=== PATIENT | male | born 1980 | race Caucasian/White ===

== ENCOUNTER 2024-10-23 11:15 | Inpatient (IN) | payer OTHER ==
[2024-10-23] MEDS ORDERED: PROMETHAZINE INJ 25 MG/ML AMP ONE (11:50)
[2024-10-23] MEDS ORDERED: ONDANSETRON 4 MG/2 ML VIAL ONE (11:50)
[2024-10-23] MEDS ORDERED: NA CHLORIDE 0.9% 2,000 ML ONE (11:51)
[2024-10-23 12:13] LABS: Absolute Lymphocytes (CBC) 2.0 K/uL (0.7-4.9); Hematocrit 50.7 % (39.6-49.0); Hemoglobin 16.3 g/dL (13.6-17.9); MCH 30.0 pg (27.0-35.0); MCHC 32.2 g/dL (32.0-36.0); MCV 93.0 fL (80-100); MPV 9.2 fL (7.6-11.3); Nucleated RBC Absolute Count 0.0 (0-0); Nucleated Red Blood Cells % 0.0 % (0-0); RBC Red Blood Cell Count 5.45 M/uL (4.33-5.43); White Blood Count 39.20 thou/uL (4.3-10.9)
[2024-10-23 13:24] LABS: ALT/SGPT 43 U/L (16-61); Albumin 4.5 g/dL (3.4-5.0); Albumin/Globulin Ratio 1.4 (1.1-1.8); Alkaline Phosphatase 117 U/L (45-117); Anion Gap 34.3 mEq/L (5.0-15.0); BUN Blood Urea Nitrogen 28 mg/dL (7-18); Globulin 3.2 g/dL (2.3-3.5); Glucose Level 643 mg/dL (74-106)
[2024-10-23 13:25] LABS: Potassium 6.3 mEq/L (3.5-5.1)
[2024-10-23 13:27] LABS: AST/SGOT 12 U/L (15-37)
--- NOTE | 2024-10-23 13:58 | ER ---
Nurse's Notes [facility] Name: Rodrigo Saenz Age: 44 yrs Sex: Male : 1980 Arrival Date: 10/23/2024 Time: 11:15 Bed 17 Private MD: Diagnosis: Type 2 diabetes mellitus with ketoacidosis without coma Presentation: 10/23 11:24 Chief complaint: Patient states: n/v since early yesterday. Reports palpitations, me1 fatigue. Feels dehydrated. Reports some diarrhea. Denies fever. Coronavirus screen: Vaccine status: Patient reports being unvaccinated. Ebola Screen: No symptoms or risks identified at this time. Initial Sepsis Screen: Does the patient meet any 2 criteria? HR > 90 bpm. Does the patient have a suspected source of infection? No. Patient's initial sepsis screen is negative. Risk Assessment: Do you want to hurt yourself or someone else? Patient reports no desire to harm self or others. Onset of symptoms was October 22, 2024. 11:24 Method Of Arrival: Ambulatory dc1 11:24 Acuity: BLANK 3 me1 Historical: - Allergies: 11:26 No Known Allergies; me1 - Home Meds: 14:36 Lantus U-100 Insulin 100 unit/mL Sub-Q solution 35 units nightly [Active]; metformin hb Oral [Active]; - PMHx: 11:26 Diabetes mellitus; me1 - PSHx: 11:26 None; me1 - Immunization history:: Adult Immunizations up to date. - Infectious Disease History:: Denies. - Social history:: Smoking status: Patient reports the use of cigarette tobacco products, smokes one-half pack cigarettes per day. Screenin:36 [facility] ED Fall Risk Assessment (Adult) History of falling in the last 3 months, hb including since admission No falls in past 3 months (0 pts) Confusion or Disorientation No (0 pts) Intoxicated or Sedated No (0 pts) Impaired Gait No (0 pts) Mobility Assist Device Used No (0 pt) Altered Elimination No (0 pt) Score/Fall Risk Level 0 - 2 = Low Risk Oriented to surroundings, Maintained a safe environment, Educated pt \T\ family on fall prevention, incl call for assistance when getting out of bed. Abuse screen: Denies threats or abuse. Denies injuries from another. Nutritional screening: No deficits noted. Tuberculosis screening: No symptoms or risk factors identified. Assessment: 11:45 General: Appears in no apparent distress. ill, Behavior is calm, cooperative. Pain: hb Pain currently is 3 out of 10 on a pain scale. Neuro: Level of Consciousness is obeys commands, lethargic, Oriented to person, place, time, situation. Cardiovascular: Patient's skin is warm and dry. Rhythm is sinus tachycardia. Respiratory: Respiratory effort is even, unlabored, Respiratory pattern is regular, symmetrical. GI: Reports nausea, vomiting. : No signs and/or symptoms were reported regarding the genitourinary system. EENT: No signs and/or symptoms were reported regarding the EENT system. Derm: Skin is pink, warm \T\ dry. Musculoskeletal: Reports soreness of torso muscles. 12:45 Reassessment: Patient appears in no apparent distress at this time. No changes from hb previously documented assessment. 14:00 Reassessment: Patient appears in no apparent distress at this time. No changes from hb previously documented assessment. Patient and/or family updated on plan of care and expected duration. Pain level reassessed. 15:00 Reassessment: Patient appears in no apparent distress at this time. No changes from hb previously documented assessment. Patient and/or family updated on plan of care and expected duration. Pain level reassessed. Vital Signs: 11:24 BP 132 / 72; Pulse 110; Resp 17; Temp 98.1; Pulse Ox 100% ; Weight 68.04 kg; Height 5 me1 ft. 7 in. ; Pain 0/10; 14:15 BP 145 / 69; Pulse 114; Resp 19; Pulse Ox 100% on R/A; hb 11:24 Body Mass Index 23.49 (68.04 kg, 170.18 cm) me1 11:24 Pain Scale: Adult me1 ED Course: 11:23 Patient arrived in ED. me1 11:25 [facility]ell Mars [facility]C [facility]5 11:25 Mathew Rodney MD is Attending Physician. dr5 11:26 Triage completed. me1 11:26 Arm band placed on Patient placed. me1 11:37 Chantel Preston, NIXON is Primary Nurse. hb 12:00 Patient has correct armband on for positive identification. Bed in low position. Call hb light in reach. Provided Education on: tests, result times. 12:00 Client placed on continuous cardiac and pulse oximetry monitoring. NIBP monitoring hb applied. flue cleaner on. Pulse ox on. NIBP on. 12:00 No provider procedures requiring assistance completed. hb 12:11 CMP Sent. hb 12:11 CBC with Diff Sent. hb 12:11 Inserted saline lock: 22 gauge in right forearm, using aseptic technique. Blood hb collected. Flushed with 10 mL NS. 13:56 Inserted saline lock: 20 gauge in left forearm, using aseptic technique. Blood aa5 collected. Flushed with 10 mL NS. 13:56 VBG Sent. aa5 13:57 Juan M Frye MD is Hospitalizing Provider. dr5 14:16 CT Abd/Pelvis - Without Contrast In Process Unspecified. EDMS 15:50 Patient admitted, IV remains in place. hb Administered Medications: 12:11 Drug: NS 0.9% IV 2000 ml IV at 1000 ml once; to be given as a bolus over 60 minutes hb Route: IV; Rate: 1000 ml; Site: right forearm; 12:11 Drug: Ondansetron IVP 4 mg IVP once; over 2 minutes Route: IVP; Site: right forearm; hb 12:11 Drug: promethazine 25 mg IV at per protocol once Route: IV; Rate: per protocol; Site: hb right forearm; 14:30 Drug: Insulin Drip - (Insulin Regular Human IVP 100 units, NS 0.9% IV 100 ml) IV at hb calculated rate continuous; Standard concentration 1unit/ml; Dose for DKA is 0.1 units/kg/hr {Co-Signature: ss (Alfreda Joseph RN).} Route: IV; Rate: calculated rate; Site: right forearm; Medication: 15:00 VIS not applicable for this client. Outcome: 13:57 Decision to Hospitalize by Provider. dr5 15:50 Admitted to ICU accompanied by nurse, accompanied by tech, family with patient, via stretcher, room 3, on monitor, with chart, Report called to Vickie ALICEA 15:50 Condition: stable 15:50 Instructed on the need for admit, Demonstrated understanding of instructions, 15:51 Patient left the ED. Signatures: [facility]patcher [facility] Magali Hill, NIXON RN aa5 Chantel Preston RN RN hb Sabina Aden, RN RN me1 Rell Mars, [employer] MAINTAINER-C [employer] SE[employer] DELIVERY SYSTEM MAINTAINER-Cdr5 Alfreda Joseph RN ss
--- NOTE | 2024-10-23 13:58 | EDPHYS ---
Physician Documentation [facility] Name: Rodrigo Saenz Age: 44 yrs Sex: Male : 1980 Arrival Date: 10/23/2024 Time: 11:15 Bed 17 Private MD: ED Physician Mathew Rodney HPI: 10/23 13:39 This 44 yrs old Male presents to ER via Ambulatory with complaints of dr5 Nausea/Vomiting/Diarrhea. 13:39 The patient presents to the emergency department with nausea, vomiting. Onset: The dr5 symptoms/episode began/occurred yesterday. Patient is a 44-year-old male with history of diabetes on insulin and metformin coming in for nausea and vomiting for the past 24 hours. Patient reports that he ran out of his insulin 5 days ago and has not been to take his metformin due to vomiting. Patient denies chest pain, shortness of breath, abdominal pain, dysuria, fever. Patient denies any other medical problems other than diabetes. Patient reports he has not checked his blood sugar over the past day due to being sick.. Historical: - Allergies: 11:26 No Known Allergies; me1 - Home Meds: 14:36 Lantus U-100 Insulin 100 unit/mL Sub-Q solution 35 units nightly [Active]; metformin hb Oral [Active]; - PMHx: 11:26 Diabetes mellitus; me1 - PSHx: 11:26 None; me1 - Immunization history:: Adult Immunizations up to date. - Infectious Disease History:: Denies. - Social history:: Smoking status: Patient reports the use of cigarette tobacco products, smokes one-half pack cigarettes per day. ROS: 13:39 Constitutional: as per hpi dr5 Exam: 13:39 Constitutional: This is a well developed, well nourished patient who is awake, alert, dr5 and in no acute distress. Head/Face: Normocephalic, atraumatic. Eyes: Pupils equal round and reactive to light, extra-ocular motions intact. Lids and lashes normal. Conjunctiva and sclera are non-icteric and not injected. Cornea within normal limits. Periorbital areas with no swelling, redness, or edema. Neck: Trachea midline, no thyromegaly or masses palpated, and no cervical lymphadenopathy. Supple, full range of motion without nuchal rigidity, or vertebral point tenderness. No Meningismus. Chest/axilla: Normal chest wall appearance and motion. Nontender with no deformity. No lesions are appreciated. Cardiovascular: Tachycardic rate and rhythm with a normal S1 and S2. Normal PMI, no JVD. No pulse deficits. Respiratory: Lungs have equal breath sounds bilaterally, clear to auscultation. No rales, rhonchi or wheezes noted. No increased work of breathing, no retractions or nasal flaring. Patient is mild tachpneic in room Back: No spinal tenderness. No costovertebral tenderness. Full range of motion. Skin: Warm, dry with normal turgor. Normal color with no rashes, no lesions, and no evidence of cellulitis. MS/ Extremity: Pulses equal, no cyanosis. Neurovascular intact. Full, normal range of motion. Neuro: Awake and alert, GCS 15, oriented to person, place, time, and situation. Cranial nerves II-XII grossly intact. Motor strength 5/5 in all extremities. Sensory grossly intact. Cerebellar exam normal. Normal gait. Vital Signs: 11:24 BP 132 / 72; Pulse 110; Resp 17; Temp 98.1; Pulse Ox 100% ; Weight 68.04 kg; Height 5 me1 ft. 7 in. ; Pain 0/10; 14:15 BP 145 / 69; Pulse 114; Resp 19; Pulse Ox 100% on R/A; hb 11:24 Body Mass Index 23.49 (68.04 kg, 170.18 cm) me1 11:24 Pain Scale: Adult me1 MDM: 11:26 Medical Screening Exam initiated dr5 13:39 Differential diagnosis: Nonspecific abd pain, pancreatitis, appendicitis, viral dr5 gastroenteritis, gastroenteritis, Diabetic ketoacidosis, hyperglycemia. Data reviewed: vital signs, nurses notes, lab test result(s), CBC, white blood cell count, hemoglobin, hematocrit, platelets, electrolytes, sodium, potassium, chloride, serum bicarbonate, BUN, creatinine, serum glucose, urinalysis. 13:40 Consideration of Admission/Observation Patient was admitted/placed on observation. dr5 14:55 Management of patient was discussed with the following: Hospitalist: Dr. Frye / [place] dr5 Attema. I considered the following discharge prescriptions or medication management in the emergency department I discussed and recommended Over The Counter medications, Medications were administered in the Emergency Department. See MAR. Historians other than the Patient: Parent: Father and Sister. Care significantly affected by the following chronic conditions: Diabetes. Care significantly affected by the following Social Determinants of Health: Poor access to healthcare and/or lack of insurance, Poor access to transportation, Problems related to employment. Counseling: I had a detailed discussion with the patient and/or guardian regarding the historical points, exam findings, and any diagnostic results supporting the discharge/admit diagnosis, the presence of at least one elevated blood pressure reading (>120/80) during this emergency department visit, lab results, radiology results, the need for further work-up and treatment in the hospital. Response to treatment: the patient's symptoms have mildly improved after treatment. ED course: Patient is feeling better after 2 L of fluid. Patient found to be in DKA. Will admit the patient to ICU and put on insulin drip. Patient notified and is agreeable to plan.. 10/23 11:57 Order name: CBC with Diff; Complete Time: 14:09 10/23 11:57 Order name: CMP; Complete Time: 13:29 10/23 11:57 Order name: UA Rfx Johnathon Cult if indicated 10/23 12:18 Order name: Manual Differential; Complete Time: 14:09 EDMS 10/23 13:28 Order name: BETA HYDROXYBUTYRATE; Complete Time: 14:24 10/23 13:28 Order name: Lipase; Complete Time: 14:24 10/23 13:28 Order name: Phosphorus; Complete Time: 14:24 10/23 13:33 Order name: VBG; Complete Time: 14:21 10/23 14:17 Order name: Lipid Profile EDMS 10/23 14:17 Order name: Lipid Profile EDMS 10/23 14:17 Order name: Magnesium EDMS 10/23 14:17 Order name: Magnesium EDMS 10/23 14:17 Order name: Magnesium EDMS 10/23 14:17 Order name: Magnesium EDMS 10/23 14:17 Order name: Phosphorus EDMS 10/23 14:17 Order name: Phosphorus EDMS 10/23 14:17 Order name: Phosphorus EDMS 10/23 14:17 Order name: Phosphorus EDMS 10/23 14:17 Order name: CBC without Diff EDMS 10/23 14:17 Order name: CBC without Diff EDMS 10/23 14:17 Order name: CBC without Diff EDMS 10/23 14:17 Order name: CBC without Diff EDMS 10/23 14:17 Order name: CBC without Diff EDMS 10/23 14:17 Order name: CBC without Diff EDMS 10/23 14:17 Order name: Liver (Hepatic) Function EDMS 10/23 14:17 Order name: Liver (Hepatic) Function EDMS 10/23 14:30 Order name: Basic Metabolic Panel EDNY 10/23 14:30 Order name: Basic Metabolic Panel EDNY 10/23 14:30 Order name: Basic Metabolic Panel EDMS 10/23 14:30 Order name: Basic Metabolic Panel EDNY 10/23 14:31 Order name: Magnesium EDNY 10/23 14:02 Order name: CT Abd/Pelvis - Without Contrast; Complete Time: 14:48 dr5 10/23 14:02 Order name: Chest Single View XRAY dr5 10/23 14:16 Order name: CONS Diabetic Education Consul EDNY 10/23 14:16 Order name: Dietitian Consult EDNY 10/23 12:18 Order name: Labs - recollect needed: green; Complete Time: 13:37 bc6 Administered Medications: 12:11 Drug: NS 0.9% IV 2000 ml IV at 1000 ml once; to be given as a bolus over 60 minutes hb Route: IV; Rate: 1000 ml; Site: right forearm; 12:11 Drug: Ondansetron IVP 4 mg IVP once; over 2 minutes Route: IVP; Site: right forearm; hb 12:11 Drug: promethazine 25 mg IV at per protocol once Route: IV; Rate: per protocol; Site: hb right forearm; 14:30 Drug: Insulin Drip - (Insulin Regular Human IVP 100 units, NS 0.9% IV 100 ml) IV at hb calculated rate continuous; Standard concentration 1unit/ml; Dose for DKA is 0.1 units/kg/hr {Co-Signature: ss (Alfreda Joseph RN).} Route: IV; Rate: calculated rate; Site: right forearm; Disposition: 10/24 13:39 Co-signature as Attending Physician, Mathew Rodney MD I agree with the assessment and brook[place]nn plan of care. Disposition Summary: 10/23/24 13:57 Hospitalization Ordered Notes: Hospitalization Status: Inpatient Admission dr5 Provider: Juan M Frye dr5 Location: Intensive Care Unit dr5 Condition: Serious dr5 Problem: chronic dr5 Symptoms: have worsened dr5 Bed/Room Type: Standard dr5 Room Assignment: 3-(10/23/24 14:26) bc6 Diagnosis - Type 2 diabetes mellitus with ketoacidosis without coma dr5 Discharge Instructions: - Discharge Summary Sheet hb Forms: - SBAR form hb - Medication Reconciliation Form dr5 - Leadership Thank You Letter dr5 Signatures: Dispatcher [employer] EDMS Mathew Rodney MD MD cha Attema, Lee, INSTALLMENT DEALER-C INSTALLMENT DEALER-Cla1 Chantel Preston RN RN Kathy Carrillo bc6 Sabina Aden RN RN me1 Rell Mars, INSTALLMENT DEALER-C INSTALLMENT DEALER-Cdr5 Alfreda Joseph RN ss Corrections: (The following items were deleted from the chart) 10/23 11:58 11:58 CBC+H.LAB.BRZ ordered. EDMS EDMS 11:58 11:58 COMPREHENSIVE METABOLIC PANEL+C.LAB.BRZ ordered. EDMS EDMS 11:58 11:58 UA Rfx Johnathon Cult if indicated+U.LAB.BRZ ordered. EDMS EDMS 13:28 13:28 BETA HYDROXYBUTYRATE+C.LAB.BRZ ordered. EDMS EDMS 13:28 13:28 LIPASE+C.LAB.BRZ ordered. EDMS EDMS 13:28 13:28 PHOSPHORUS+C.LAB.BRZ ordered. EDMS EDMS 13:36 12:03 Abdomen Pelvis W Con+CT.RAD.BRZ ordered. EDMS EDMS 14:26 13:57 dr5 bc6 14:28 14:16 Basic Metabolic Panel ordered. EDMS EDMS 14:28 14:16 Basic Metabolic Panel ordered. EDMS EDMS 14:28 14:17 Basic Metabolic Panel ordered. EDMS EDMS 14:28 14:17 Basic Metabolic Panel ordered. EDMS EDMS 14:28 14:17 Basic Metabolic Panel ordered. EDMS EDMS 14:38 14:30 Magnesium ordered. EDMS EDMS 14:56 13:39 Constitutional: This is a well developed, well nourished patient who is awake, dr5 alert, and in no acute distress. Head/Face: Normocephalic, atraumatic. Eyes: Pupils equal round and reactive to light, extra-ocular motions intact. Lids and lashes normal. Conjunctiva and sclera are non-icteric and not injected. Cornea within normal limits. Periorbital areas with no swelling, redness, or edema. Neck: Trachea midline, no thyromegaly or masses palpated, and no cervical lymphadenopathy. Supple, full range of motion without nuchal rigidity, or vertebral point tenderness. No Meningismus. Chest/axilla: Normal chest wall appearance and motion. Nontender with no deformity. No lesions are appreciated. Cardiovascular: Tachycardic rate and rhythm with a normal S1 and S2. Normal PMI, no JVD. No pulse deficits. Respiratory: Lungs have equal breath sounds bilaterally, clear to auscultation. No rales, rhonchi or wheezes noted. No increased work of breathing, no retractions or nasal flaring. Back: No spinal tenderness. No costovertebral tenderness. Full range of motion. Skin: Warm, dry with normal turgor. Normal color with no rashes, no lesions, and no evidence of cellulitis. MS/ Extremity: Pulses equal, no cyanosis. Neurovascular intact. Full, normal range of motion. Neuro: Awake and alert, GCS 15, oriented to person, place, time, and situation. Cranial nerves II-XII grossly intact. Motor strength 5/5 in all extremities. Sensory grossly intact. Cerebellar exam normal. Normal gait. dr5
[2024-10-23 14:06] LABS: Blood Morphology Comment NOT SEEN (NOT SEEN); Differential Total Cells Count 100; Segmented Neutrophils 74 % (40-80)
[2024-10-23 14:16] LABS: PCO2, Venous Blood Gas 26 mmHg (41-51); PO2, Venous Blood Gas 68 mmHg (25-40)
[2024-10-23 14:18] LABS: PH, Venous Blood Gas < 7.00 (7.32-7.42)
[2024-10-23 14:21] LABS: Lipase 15.0 U/L (13-75)
[2024-10-23] MEDS: INSULIN REGULAR, HUMAN 100 UNIT in NA CHLORIDE 0.9% 100 ML IV SCH (14:30)
--- NOTE | 2024-10-23 14:47 | RAD REPORT ---
EXAMINATION: CT Abdomen Pelvis Wo Contrast CLINICAL INDICATION: Male, 44 years old. ABD PAIN TECHNIQUE: CT abdomen and pelvis was performed, without IV contrast, as per department protocol. Axia l, sagittal and coronal reconstructions were obtained. One or more of the following dose reduction techniques were used: Automated exposure control, adjustment of the mA and kV according to the patien t size, and iterative reconstruction. Unless otherwise specified, incidental findings do not require dedicated imaging follow-up. COMPARISON: No prior exam. FINDINGS: The lack of intravenous contrast limits the sensitivity of this exam for evaluation of solid visceral organs, vascular structures, and retroperitoneum. The heart artifact limits evaluation of upper abdomen LOWER CHEST: The visualized lung bases are clear. LIVER: Normal in size and contour. No focal lesion. BILIARY SYSTEM: No suspicious abnormalities. SPLEEN: Normal size. No focal lesion. PANCREAS: No mass, ductal dilation, or robles-pancreatic fluid. ADRENALS: Normal; no mass. KIDNEYS AND URETERS: Normal size and contour. 3 mm nonobstructing left interpolar calculus. No hydron ephrosis. URINARY BLADDER: Normal contour. GASTROINTESTINAL TRACT: No evidence of bowel obstruction, significant free fluid, free air or abscess . APPENDIX: Normal appendix. LYMPH NODES: No lymphadenopathy. MUSCULOSKELETAL: No acute or suspicious osseous abnormality. ADDITIONAL FINDINGS: None. IMPRESSION: Nonobstructing left renal interpolar 3 mm calculus. No other acute or concerning abnormalities in the abdomen or pelvis, with evaluation limited by lack of IV contrast.
[2024-10-23 14:58] VITALS: BMI 23.5
[2024-10-23] MEDS: D5 0.45 NS 1,000 ML IV SCH (15:00)
[2024-10-23] MEDS ORDERED: NACHLORIDE 0.45% 1,000 ML IV SCH (15:00)
--- NOTE | 2024-10-23 15:13 | P.HP ---
Certification for Inpatient Patient admitted to: Inpatient With expected LOS: >2 Midnights Patient will require the following post-hospital care: None Practitioner: I am a practitioner with admitting privileges, knowledge of patient current condition, hospital course, and medical plan of care. Services: Services provided to patient in accordance with Admission requirements found in Title 42 Section 412.3 of the Code of Federal Regulations Patient History Date of Service: 10/23/24 Reason for admission: DKA History of Present Illness: 44-year-old male with history of insulin-dependent diabetes presents emergency department chief complaint of nausea/vomiting. He reports that he ran out of his long-acting insulin and his last dose was on Tuesday 10/17. Yesterday around 4 PM he developed nausea and vomiting and has persistently been vomiting since then with also an episode of diarrhea this afternoon. He reports abdominal pain described as cramping with vomiting. He denies any fevers, chills, dysuria. He does feel some shortness of breath and does have rapid respiratory rate likely Kussmaul's. Patient was evaluated in the emergency department his labs are significant for DKA, metabolic acidosis, hyperkalemia, hyperglycemia, leukocytosis with a white blood cell count of 39.2. CT of the abdomen pelvis was performed without contrast which was negative for any acute findings, chest x-ray has also been ordered and is pending interpretation. VBG was performed which showed a pH of less than 7. Patient will be admitted to the ICU on bicarb containing IV fluids and insulin drip. Case was discussed with nephrology as well. Allergies No Known Allergies Allergy (Unverified 12/29/16 17:33) - Past Medical/Surgical History Diabetic: Yes -: DM2 Psychosocial/ Personal History: Lives at home with his brother - Social History Smoking Status: Never smoker Alcohol use: No CD- Drugs: No Caffeine use: Yes Place of Residence: Home Review of Systems 10-point ROS is otherwise unremarkable Gastrointestinal: Nausea, Vomiting, Abdominal Pain Physical Examination - Vital Signs Blood Pressure: 147/61 Pulse: 121 Respirations: 14 Pulse Ox (%): 100 - Physical Exam General: Alert, In no apparent distress, Oriented x3 HEENT: Atraumatic, PERRLA, EOMI Neck: Supple, 2+ carotid pulse no bruit, No LAD Respiratory: Clear to auscultation bilaterally, Normal air movement Cardiovascular: Regular rate/rhythm, Normal S1 S2 Gastrointestinal: Normal bowel sounds, No tenderness Musculoskeletal: No tenderness Integumentary: No rashes Neurological: Normal gait, Normal speech, Normal strength at 5/5 x4 extr, Normal affect - Studies Laboratory Data (last 24 hrs) 10/23/24 10/23/24 10/23/24 13:54 12:47 12:04 WBC 39.20 H Hgb 16.3 Hct 50.7 H Plt Count 622 H Sodium 133 L Potassium 6.3 H* BUN 28 H Creatinine 1.84 H Glucose 643 H* Phosphorus 6.1 H Total Bilirubin 0.6 AST 12 L ALT 43 Alkaline Phosphatase 117 Lipase 15 Assessment and Plan - Plan Assessment: Diabetes mellitus type 2insulin-dependent with ketoacidosis Acute kidney injury with hyperkalemia Leukocytosis Plan: Diabetes mellitus type 2insulin-dependent with ketoacidosis Acute kidney injury with hyperkalemia Received 2 L of NS in ED Started on bicarb containing IV fluids and insulin drip Repeat chemistry in 2 hours to watch for possible precipitous drop in potassium Hourly Accu-Chek Every 2 hour chemistry at first then may space out to every 4 hour Okay for sips of water and ice chips CT abdomen pelvis negative for acute findings Nephrology consulted/assisting Leukocytosis Suspect this is secondary to hemoconcentration and reactive with nausea vomiting and DKA Monitor for signs of fevers or other sources of infection Continue supportive care DVT PPX: Lovenox Code status: Full code Discharge Plan: Home Plan to discharge in: Greater than 2 days - Advance Directives Does patient have a Living Will: No Does patient have a Durable POA for Healthcare: No - Code Status/Comfort Care Code Status Assessed: Yes (Full code) Critical Care: No Time Spent Managing Pts Care (In Minutes): 75
[2024-10-23] MEDS: NACHLORIDE 0.45% 1,000 ML with NA BICARB 8.4% 75 MEQ IV SCH (15:30)
[2024-10-23 15:58] LABS: Sqamous Epithelial None Seen /HPF (None Seen); Urine Culture Reflex Order NOT NEEDED; Urine Microscopic Reflex YN ORDER UMIC
--- NOTE | 2024-10-23 16:09 | RAD REPORT ---
EXAMINATION: ONE VIEW CHEST XR CLINICAL INDICATION: Male, 44 years old.,leukocytosis, dyspnea TECHNIQUE: Frontal chest projection is submitted. Examination is limited by patient positioning and t echnique. COMPARISON: No prior exam. FINDINGS: The lungs are well inflated and clear. No pneumothorax or sizable effusion. The heart is normal in s ize. Mediastinal contours are unremarkable. IMPRESSION: No acute intrathoracic abnormalities.
[2024-10-23 16:53] LABS: Anion Gap 33.3 mEq/L (5.0-15.0); BUN Blood Urea Nitrogen 28 mg/dL (7-18)
[2024-10-23 16:54] LABS: Potassium 6.3 mEq/L (3.5-5.1)
[2024-10-23 16:55] LABS: Glucose Level 644 mg/dL (74-106)
[2024-10-23] MEDS ORDERED: VANCOMYCIN 1 GM in NA CHLORIDE 0.9% 250 ML IVPB SCH (17:00)
[2024-10-23] MEDS: VANCOMYCIN 1.25 GM in NA CHLORIDE 0.9% 250 ML IVPB SCH (17:14)
[2024-10-23] MEDS: CEFEPIME 1 GM in NA CHLORIDE 0.9% 100 ML IV SCH (18:14)
[2024-10-23 18:48] LABS: Anion Gap 26.6 mEq/L (5.0-15.0); BUN Blood Urea Nitrogen 27 mg/dL (7-18); Glucose Level 373 mg/dL (74-106); Potassium 4.6 mEq/L (3.5-5.1)
[2024-10-23 23:19] LABS: Anion Gap 19.3 mEq/L (5.0-15.0); BUN Blood Urea Nitrogen 23.0 mg/dL (7-18); Glucose Level 126.0 mg/dL (74-106); Potassium 4.3 mEq/L (3.5-5.1)
--- NOTE | 2024-10-24 03:21 | P.PN ---
Date of Service: 10/24/24 Subjective Patient is anion gap is slowly closing. Physical Examination - Vital Signs Reviewed - Physical Exam General: Alert, In no apparent distress, Oriented x3 HEENT: Atraumatic, PERRLA, EOMI Neck: Supple, 2+ carotid pulse no bruit, No LAD Respiratory: Clear to auscultation bilaterally, Normal air movement Cardiovascular: Regular rate/rhythm, Normal S1 S2 Gastrointestinal: Normal bowel sounds, No tenderness Musculoskeletal: No tenderness Integumentary: No rashes Neurological: Normal gait, Normal speech, Normal strength at 5/5 x4 extr, Normal affect Assessment and Plan - Assessment/Plan Assessment: Diabetes mellitus type 2insulin-dependent with ketoacidosis Acute kidney injury with hyperkalemia Leukocytosis Plan: Diabetes mellitus type 2insulin-dependent with ketoacidosis Acute kidney injury with hyperkalemia Received 2 L of NS in ED Started on bicarb containing IV fluids and insulin drip Repeat chemistry in 2 hours to watch for possible precipitous drop in potassium Hourly Accu-Chek Every 2 hour chemistry at first then may space out to every 4 hour Okay for sips of water and ice chips CT abdomen pelvis negative for acute findings Nephrology consulted/assisting Leukocytosis Suspect this is secondary to hemoconcentration and reactive with nausea vomiting and DKA Monitor for signs of fevers or other sources of infection Continue supportive care DVT PPX: Lovenox Code status: Full code Discharge Plan: Home Plan to discharge in: Greater than 2 days - Advance Directives Does patient have a Living Will: No Does patient have a Durable POA for Healthcare: No - Code Status/Comfort Care Code Status Assessed: Yes (Full code) Critical Care: YES Time Spent Managing Pts Care (In Minutes): 35
[2024-10-24 05:08] LABS: Hematocrit 39.5 % (39.6-49.0); Hemoglobin 13.7 g/dL (13.6-17.9); MCH 30.2 pg (27.0-35.0); MCHC 34.5 g/dL (32.0-36.0); MCV 87.5 fL (80-100); MPV 7.7 fL (7.6-11.3); RBC Red Blood Cell Count 4.52 M/uL (4.33-5.43); White Blood Count 26.40 thou/uL (4.3-10.9)
[2024-10-24 05:32] LABS: ALT/SGPT 33.0 U/L (16-61); AST/SGOT 14.0 U/L (15-37); Albumin 3.7 g/dL (3.4-5.0); Albumin/Globulin Ratio 1.4 (1.1-1.8); Alkaline Phosphatase 69.0 U/L (45-117); Anion Gap 17.0 mEq/L (5.0-15.0); BUN Blood Urea Nitrogen 22.0 mg/dL (7-18); Bilirubin Indirect, Calculated 0.5 mg/dL (0.2-0.8); Globulin 2.7 g/dL (2.3-3.5); Glucose Level 193.0 mg/dL (74-106); HDL Cholesterol 48.0 mg/dL (40-60); LDL Cholesterol, Calculated 99.0 mg/dL (<130); LDL Cholesterol,Calc NonReport 99.0; Magnesium 1.7 mg/dL (1.6-2.4); Potassium 4.0 mEq/L (3.5-5.1)
[2024-10-24] MEDS: ENOXAPARIN 40 MG/0.4 ML SQ SCH (09:00)
[2024-10-24 10:01] LABS: Base Excess, VBG -6.8 mmol/L (-2.0-3.0); HCO3, Venous Blood Gas 18.6 mmol/L (21.0-29.0); O2 Saturation, VBG 99.8 % (40.0-70.0); PCO2, Venous Blood Gas 33 mmHg (41-51); PH, Venous Blood Gas 7.36 (7.32-7.42); PO2, Venous Blood Gas 232 mmHg (25-40)
[2024-10-24] MEDS: D5W 1,000 ML IV ONE (11:11)
[2024-10-24] MEDS: INSULIN GLARGINE 100 UNIT/ML SQ ONE (15:45)
[2024-10-24 16:30] LABS: Anion Gap 14.9 mEq/L (5.0-15.0); BUN Blood Urea Nitrogen 22.0 mg/dL (7-18); Glucose Level 318.0 mg/dL (74-106); Potassium 3.9 mEq/L (3.5-5.1)
[2024-10-24] MEDS: METFORMIN ER 500 MG TAB PO SCH (17:21)
[2024-10-24] MEDS: ONDANSETRON 4 MG/2 ML VIAL IV PRN (20:07)
[2024-10-24] MEDS: INSULIN REGULAR (HUMAN) 100 UNIT/ML SQ SCH (21:08)
[2024-10-24] MEDS: INSULIN GLARGINE 100 UNIT/ML SQ SCH (21:08)
[2024-10-24 23:39] LABS: ALT/SGPT 37.0 U/L (16-61); AST/SGOT 23.0 U/L (15-37); Albumin 3.3 g/dL (3.4-5.0); Albumin/Globulin Ratio 1.3 (1.1-1.8); Alkaline Phosphatase 63.0 U/L (45-117); Anion Gap 18.7 mEq/L (5.0-15.0); BUN Blood Urea Nitrogen 17.0 mg/dL (7-18); Globulin 2.5 g/dL (2.3-3.5); Glucose Level 335.0 mg/dL (74-106); Potassium 3.7 mEq/L (3.5-5.1)
[2024-10-25 01:02] VITALS: O2SAT 99
--- NOTE | 2024-10-25 02:07 | CON ---
Patient is admitted to the ICU because of DKA. Patient is on insulin drip. He is 44-year-old man wi th DKA secondary to missed insulin as he ran out of prescription and he was started on insulin drip. Nephrology consultation was requested for acute kidney injury. There is an elevated BUN and creatin ine level. Patient has underlying chronic kidney disease stage 3. Patient is 44-year-old man with h istory of insulin-dependent diabetes mellitus presented to emergency room complaining of nausea and v omiting. He is on long acting insulin and his last dose done on October 17. he developed nausea and vomiting and has persistent vomiting and some abdominal discomfort. He describe s cramping and vomiting and denied hematuria or dysuria. Denied back pain, and he came to the hospit al with severe shortness of breath. He had respiratory rate increased. Patient was evaluated in the emergency room. He was found to have DKA, metabolic acidosis, hyperkalemia, hyperglycemia, leukocyt osis. White blood cell count was 39,200. CT scan of the abdomen and pelvis was performed in the [facility] room without contrast, which was negative for an acute finding. Chest x-ray also was ordered and was pending interpretation. ABG showed pH of less than 7. Patient was started on bec ause of severe metabolic acidosis, , and severe electrolyte abnormalities. Review of Systems: Constitutional: Today, he is feeling better. Denies fever, chills. Eyes: Denies vision changes. Ears, Nose, Mouth, and Throat: Denies sore throat, earache. Respiratory: Denies PND, orthopnea. Cardiovascular: Denies chest pain, palpitations, syncope. GI: nausea, vomiting : Denies dysuria, hematuria. All other systems reviewed and all are negative. Social History: Denies alcohol. Denies drugs. Past Medical History: Diabetes mellitus insulin dependent. Physical Examination: General: Patient is awake, alert, follows commands. Eyes: Anicteric. Sclerae EOMI. Ears, Nose, Mouth, and Throat: Denies sore throat, earaches. Impression And Plan: Acute kidney injury in setting of metabolic acidosis, and severe hyp erkalemia. Patient was started on . CT scan of the abdomen and pelvis acute fi ndings. Patient has nonoliguric urine output monitor. Renal function . Patient has hyper kalemia due to severe DKA and metabolic acidosis urinary tract infection and check renal u ltrasound to rule out obstructive uropathy. EB/MODL Voice ID: [id number] Report ID: [id number]
[2024-10-25 11:42] LABS: Absolute Lymphocytes (CBC) 1.4 K/uL (0.7-4.9); Hematocrit 37.1 % (39.6-49.0); Hemoglobin 12.7 g/dL (13.6-17.9); MCH 29.7 pg (27.0-35.0); MCHC 34.2 g/dL (32.0-36.0); MCV 86.7 fL (80-100); MPV 8.1 fL (7.6-11.3); Nucleated RBC Absolute Count 0.0 (0-0); Nucleated Red Blood Cells % 0.1 % (0-0); RBC Red Blood Cell Count 4.28 M/uL (4.33-5.43); White Blood Count 15.80 thou/uL (4.3-10.9)
[2024-10-25 11:53] LABS: ALT/SGPT 35.0 U/L (16-61); AST/SGOT 16.0 U/L (15-37); Albumin 3.5 g/dL (3.4-5.0); Albumin/Globulin Ratio 1.5 (1.1-1.8); Alkaline Phosphatase 60.0 U/L (45-117); Anion Gap 12.2 mEq/L (5.0-15.0); BUN Blood Urea Nitrogen 15.0 mg/dL (7-18); Globulin 2.3 g/dL (2.3-3.5); Glucose Level 209.0 mg/dL (74-106); Magnesium 1.9 mg/dL (1.6-2.4); Potassium 3.2 mEq/L (3.5-5.1)
--- NOTE | 2024-10-25 12:04 | P.PN ---
Date of Service: 10/25/24 s 44-year-old man with DKA secondary to missed insulin as he ran out of prescription and he was started on insulin drip. Nephrology consultation was requested for acute kidney injury. There is an elevated BUN and creatinine level. Patient has underlying chronic kidney disease stage 3. Patient is 44-year-old man with history of insulin-dependent diabetes mellitus presented to emergency room complaining of nausea and vomiting. He is on long acting insulin and his last dose done on October 17. he developed nausea and vomiting and has persistent vomiting and some abdominal discomfort. He describes cramping and vomiting and denied hematuria or dysuria. Denied back pain, and he came to the hospital with severe shortness of breath. He had respiratory rate increased. Patient was evaluated in the emergency room. He was found to have DKA, metabolic acidosis, hyperkalemia, hyperglycemia, leukocytosis. White blood cell count was 39,200. CT scan of the abdomen and pelvis was performed in the emergency room without contrast, which was negative for an acute finding Patient admitted with DKA treated with weaned from insulin kidney function has been improved Enoxaparin Sodium (Enoxaparin 40 Mg/0.4 Ml) 40 mg SQ DAILY [facility] Last Admin: 10/25/24 07:48 Dose: 40 mg Cefepime HCl 1 gm/ Sodium (Chloride) 100 mls @ 200 mls/hr IV Q12HR 6AM AND 6PM [facility]; Protocol Last Admin: 10/25/24 05:27 Dose: 100 mls Vancomycin HCl 1.25 gm/ Sodium (Chloride) 250 mls @ 125 mls/hr IVPB Q24H [facility] Last Admin: 10/24/24 17:21 Dose: 250 mls Insulin Glargine (Insulin Glargine 100 Unit/Ml) 35 unit SQ BEDTIME [facility] Last Admin: 10/24/24 21:08 Dose: 35 unit Insulin Human Regular (Insulin Regular (Human) 100 Unit/Ml) 0 unit SQ ACHS [facility]; Protocol Last Admin: 10/25/24 07:30 Dose: Not Given Ondansetron HCl (Ondansetron 4 Mg/2 Ml Vial) 4 mg IV Q6H PRN PRN Reason: NAUSEA / VOMITING Last Admin: 10/24/24 20:07 Dose: 4 mg Laboratory Last Values WBC 39.20 thou/uL (4.3-10.9) H 10/23/24 12:04 RBC 5.45 M/uL (4.33-5.43) H 10/23/24 12:04 Hgb 16.3 g/dL (13.6-17.9) 10/23/24 12:04 Hct 50.7 % (39.6-49.0) H 10/23/24 12:04 MCV 93.0 fL (80-100) 10/23/24 12:04 MCH 30.0 pg (27.0-35.0) 10/23/24 12:04 MCHC 32.2 g/dL (32.0-36.0) 10/23/24 12:04 RDW 14.1 % (12.1-15.2) 10/23/24 12:04 Plt Count 622 thou/uL (152-406) H 10/23/24 12:04 MPV 9.2 fL (7.6-11.3) 10/23/24 12:04 Neutrophils % 91.1 % (41.7-73.7) H 10/23/24 12:04 Lymphocytes % 5.2 % (15.3-44.8) L 10/23/24 12:04 Monocytes % 3.3 % (3.3-12.3) 10/23/24 12:04 Eosinophils % 0.1 % (0-4.4) 10/23/24 12:04 Basophils % 0.3 % (0-1.3) 10/23/24 12:04 Absolute Neutrophils 35.7 K/uL (1.8-8.0) H 10/23/24 12:04 Segmented Neutrophils 74 % (40-80) 10/23/24 12:04 Band Neutrophils 19 % (0-1) H 10/23/24 12:04 Absolute Lymphocytes 2.0 K/uL (0.7-4.9) 10/23/24 12:04 Lymphocytes 4 % (15-42) L 10/23/24 12:04 Monocytes 3 % (0-10) 10/23/24 12:04 Absolute Monocytes 1.3 K/uL (0.1-1.3) 10/23/24 12:04 Absolute Eosinophils 0.0 K/uL (0-0.5) 10/23/24 12:04 Absolute Basophils 0.1 K/uL (0-0.5) 10/23/24 12:04 Platelet Estimate Adeq 10/23/24 12:04 Morphology Comment Not seen (NOT SEEN) 10/23/24 12:04 VBG pH < 7.00 (7.32-7.42) L* 10/23/24 13:54 VBG pCO2 26 mmHg (41-51) L 10/23/24 13:54 VBG pO2 68 mmHg (25-40) H 10/23/24 13:54 VBG HCO3 mmol/L (21.0-29.0) 10/23/24 13:54 VBG O2 Saturation % (40.0-70.0) 10/23/24 13:54 VBG Base Excess mmol/L (-2.0-3.0) 10/23/24 13:54 Venous Inspired Oxygen % 10/23/24 13:54 Sodium 133 mEq/L (136-145) L 10/23/24 12:47 Potassium 6.3 mEq/L (3.5-5.1) H* 10/23/24 12:47 Chloride 99 mEq/L (98-107) 10/23/24 12:47 Carbon Dioxide < 8 mEq/L (21-32) L* 10/23/24 12:47 Anion Gap 34.3 mEq/L (5.0-15.0) H 10/23/24 12:47 BUN 28 mg/dL (7-18) H 10/23/24 12:47 Creatinine 1.84 mg/dL (0.70-1.30) H 10/23/24 12:47 Est GFR (CKD-EPI) 45 ml/min (=/>90) L 10/23/24 12:47 Glucose 643 mg/dL (74-106) H* 10/23/24 12:47 Calcium 9.0 mg/dL (8.5-10.1) 10/23/24 12:47 Phosphorus 6.1 mg/dL (2.5-4.9) H 10/23/24 13:54 Total Bilirubin 0.6 mg/dL (0.2-1.0) 10/23/24 12:47 AST 12 U/L (15-37) L 10/23/24 12:47 ALT 43 U/L (16-61) 10/23/24 12:47 Alkaline Phosphatase 117 U/L (45-117) 10/23/24 12:47 Serum Total Protein 7.7 g/dL (6.4-8.2) 10/23/24 12:47 Albumin 4.5 g/dL (3.4-5.0) 10/23/24 12:47 Globulin 3.2 g/dL (2.3-3.5) 10/23/24 12:47 Albumin/Globulin Ratio 1.4 (1.1-1.8) 10/23/24 12:47 Lipase 15 U/L (13-75) 10/23/24 13:54 Beta-Hydroxybutyrate/Acetoacetate 0.87 mmol/L (0.02-0.27) H 10/23/24 13:54 - Physical Exam Temp Pulse Resp BP Pulse Ox 98.5 F 58 16 125/67 99 10/25/24 08:00 10/25/24 08:00 10/25/24 08:00 10/25/24 08:00 10/25/24 08:00 General: Alert, In no apparent distress, Oriented x3 HEENT: Atraumatic, PERRLA, EOMI Neck: Supple, 2+ carotid pulse no bruit, No LAD Respiratory: Clear to auscultation bilaterally, Normal air movement Cardiovascular: Regular rate/rhythm, Normal S1 S2 Gastrointestinal: Normal bowel sounds, No tenderness Musculoskeletal: No tenderness Integumentary: No rashes Neurological: Normal gait, Normal speech, Normal strength at 5/5 x4 extr, Normal affect Assessment and plan: Acute kidney injury secondary to prerenal secondary to Gluco diuresis and recover resolved patient Dr. Finley normal volume Keep holding IV fluid Will continue to monitor the patient Hypertension controlled optimal Continue current treatment Hyperkalemia in the setting of DKA recovered resolved patient can be a good candidate to add DONALD inhibitor/ARB giving the history of diabetes Hypokalemia hypomagnesemia hypophosphatemia will supplement Acidosis high anion gap metabolic acidosis secondary to DKA currently non-anion gap metabolic acidosis mostly secondary to IV fluid during the fluid resuscitation during the DKA no need for bicarb currently Time spent examining the patient [id number] reviewing data lab and the radiology visits over the discussing the case with the patient discussing the case with the garment steamer including hospitalist and nursing staff more than 55- minute
[2024-10-25 12:32] VITALS: BP 134/72; TEMP 98.9
[2024-10-25] MEDS: Magnesium Sulfate 2gm IVPB 2 G/50 ML BAG IV ONE (12:36)
[2024-10-25] MEDS: POTASSIUM PHOS 30 MM in NA CHLORIDE 0.9% 500 ML IV ONE (12:56)
[2024-10-25 15:19] LABS: Anion Gap 13.3 mEq/L (5.0-15.0); BUN Blood Urea Nitrogen 15.0 mg/dL (7-18); Glucose Level 210.0 mg/dL (74-106); Potassium 3.3 mEq/L (3.5-5.1)
== END 2024-10-25 16:32 | disposition home or self-care (01) | DRG 638 ==
LOC: ER 11:15 → 3RD-ICU 14:08 → 4TH 10-25 04:30
PROVIDERS: ADMIT Hospitalist; ATTEND Hospitalist
DX: E11.10 Type 2 diabetes mellitus with ketoacidosis without coma (principal); E87.20 Acidosis, unspecified; N17.9 Acute kidney failure, unspecified; E87.5 Hyperkalemia; Z79.4 Long term (current) use of insulin; Z79.84 Long term (current) use of oral hypoglycemic drugs; F17.210 Nicotine dependence, cigarettes, uncomplicated
CPT/HCPCS: 36415; 71045; 74176; 80048; 80053; 80061; 80076; 81001; 82010; 82803; 82947; 83036; 83605; 83690; 83735; 84100; 85025; 85027; 87040; 96374; 96375; 99285; J0692; J1650; J1815; J2405; J2550; J3370; J3475; J7030; J7040; J7050